=== PATIENT | male | born 1990 | race Asian ===

== ENCOUNTER 2018-01-08 08:56 | Emergency (ER) | payer MEDICAID ==
[2018-01-08] MEDS: KETOROLAC 30 MG INJ IV (09:27)
[2018-01-08] MEDS: ONDANSETRON 4 MG INJ IV (09:28)
[2018-01-08] MEDS: SOD CHLORIDE 0.9% 1,000 ML IV (09:28)
[2018-01-08 09:30] LABS: ADD MAN DIFF? NO
[2018-01-08 09:32] LABS: BASOPHILS % 0.2 % (0.0-2.0); EOSINOPHILS % 0.1 % (0.0-7.0); HEMOGLOBIN 14.8 g/dl (14.0-18.0); LYMPHOCYTES # 1.4 10^3/ul (0.8-2.9); MEAN CORPUSCULAR HEMOGLOBIN 25.4 pg (29.0-33.0); MEAN CORPUSCULAR HGB CONC 33.6 g/dl (32.0-37.0); MEAN CORPUSCULAR VOLUME 75.5 fl (82.0-101.0); MEAN PLATELET VOLUME 9.9 fl (7.4-10.4); MONOCYTE # 0.5 10^3/ul (0.3-0.9); MONOCYTES % 3.1 % (0.0-11.0); NEUTROPHILS % 87.1 % (39.0-77.0); PLATELET COUNT 266 10^3/UL (140-415); RED BLOOD COUNT 5.83 10^6/ul (4.70-6.10)
[2018-01-08 09:36] LABS: ADD UMIC NO; UR ASCORBIC ACID NEGATIVE (NEGATIVE); UR BILIRUBIN (Dip) NEGATIVE (NEGATIVE); UR BLOOD (Dip) NEGATIVE (NEGATIVE); UR CLARITY CLEAR (CLEAR); UR COLOR YELLOW (YELLOW); UR GLUCOSE (Dip) NEGATIVE (NEGATIVE); UR KETONES (Dip) TRACE mg/dL (NEGATIVE); UR LEUKOCYTE ESTERASE (Dip) NEGATIVE Leu/ul (NEGATIVE); UR NITRITE (Dip) NEGATIVE (NEGATIVE); UR SPECIFIC GRAVITY (Dip) 1.025 (1.003-1.030); UR TOTAL PROTEIN (Dip) NEGATIVE (NEGATIVE); UR UROBILINOGEN (Dip) NEGATIVE (NEGATIVE)
[2018-01-08] MEDS: SOD CHLORIDE 0.9% 100 ML (09:40)
[2018-01-08] MEDS: IOHEXOL 300MG/ML 150 ML BTL (09:41)
[2018-01-08 09:55] LABS: LACTIC ACID 3.1 mmol/L (0.5-2.0)
[2018-01-08 09:58] LABS: ALANINE AMINOTRANSFERASE 30 IU/L (13-69); ALBUMIN 4.8 g/dl (3.3-4.9); ALBUMIN/GLOBULIN RATIO 1.84; ALKALINE PHOSPHATASE 66 IU/L (42-121); ANION GAP 17 (8-16); ASPARTATE AMINO TRANSFERASE 38 IU/L (15-46); BILIRUBIN,INDIRECT 0.9 mg/dl (0-1.1); BILIRUBIN,TOTAL 0.9 mg/dl (0.2-1.3); BLOOD UREA NITROGEN 17 mg/dl (7-20); CARBON DIOXIDE 17 mmol/L (21-31); CHLORIDE 111 mmol/L (97-110); CREATININE 0.91 mg/dl (0.61-1.24); GLUCOSE 120 mg/dl (70-220); LIPASE 83 U/L (23-300); POTASSIUM 4.5 mmol/L (3.5-5.1); SODIUM 140 mmol/L (135-144); TOTAL PROTEIN 7.4 g/dl (6.1-8.1)
[2018-01-08] MEDS: morphine 4 MG/ML VIAL IV (10:12)
[2018-01-08] MEDS: SODIUM CHLORIDE 0.9% 1L BAG IV* (10:13)
[2018-01-08] MEDS: PIPER-TAZO 3.375 GM IV (PMX) 100 ML IVPB (10:27)
[2018-01-08 12:55] LABS: LACTIC ACID 1.6 mmol/L (0.5-2.0)
[2018-01-08 13:03] LABS: ALANINE AMINOTRANSFERASE 34 IU/L (13-69); ALBUMIN 3.6 g/dl (3.3-4.9); ALBUMIN/GLOBULIN RATIO 1.56; ALKALINE PHOSPHATASE 45 IU/L (42-121); ANION GAP 11 (8-16); ASPARTATE AMINO TRANSFERASE 25 IU/L (15-46); BILIRUBIN,INDIRECT 0.9 mg/dl (0-1.1); BILIRUBIN,TOTAL 0.9 mg/dl (0.2-1.3); BLOOD UREA NITROGEN 16 mg/dl (7-20); CALCIUM 8.4 mg/dl (8.4-10.2); CARBON DIOXIDE 22 mmol/L (21-31); CHLORIDE 115 mmol/L (97-110); CREATININE 0.94 mg/dl (0.61-1.24); GLUCOSE 111 mg/dl (70-220); POTASSIUM 4.9 mmol/L (3.5-5.1); SODIUM 143 mmol/L (135-144); TOTAL PROTEIN 5.9 g/dl (6.1-8.1)
[2018-01-08] MEDS: HYDROCODONE/APAP (5/325) TAB PO (13:23)
[2018-01-08] MEDS: ONDANSETRON (ODT) 4 MG TAB ODT (13:23)
== END 2018-01-08 13:29 | disposition home or self-care (01) ==
LOC: FTE 08:56
DX: R11.10 Vomiting, unspecified (principal); R10.9 Unspecified abdominal pain
CPT/HCPCS: 36415; 74177; 80053; 81003; 83605; 83690; 85025; 87040; 87086; 93005; 96361; 96365; 96375; 99285-25